=== PATIENT | female | born 1985 | race Caucasian/White ===

== ENCOUNTER 2018-06-06 08:45 | Day surgery (SDC) | payer SELFPAY ==
[2018-06-03 13:11] VITALS: BMI 24.7
[2018-06-06 09:05] LABS: #Basophils 0.1 thou/uL (0.0-0.2); #Eosinphils 0.1 thou/uL (0.0-0.7); #Lymphocytes 2.5 thou/uL (1.20-3.40); #Monocytes 0.4 thou/uL (0.11-0.59); #Neutrophils 4.7 thou/uL (1.40-6.50); %Basophils 1.3 % (0.0-1.0); %Eosinophils 1.6 % (0.0-10.0); %Lymphocytes 31.7 % (21.0-51.0); %Neutrophils 60.4 % (42.0-75.0); Hemoglobin 12.2 g/dL (12.0-16.0); Mean Corpuscular HGB CONC 33.7 g/dL (32.0-36.0); Mean Corpuscular Hemoglobin 31.6 pg (27.0-31.0); Mean Corpuscular Volume 93.8 fL (78.0-98.0); Mean Platelet Volume 6.6 fL (7.4-10.4); Platelet Count 329 thou/uL (130-400); RBC Distribution Width 11.5 % (11.5-14.5); Red Blood Cell (RBC) Count 3.87 mill/uL (4.20-5.40); White Blood Cell (WBC) Count 7.8 thou/uL (4.8-10.8)
[2018-06-06 09:12] LABS: INR-International Normal Ratio 0.9; PTT 29.7 SEC (22.9-36.1); Prothrombin Time 12.6 SEC (12.0-14.7)
--- NOTE | 2018-06-06 16:03 | CT ---
CT GUIDED RANDOM RENAL BIOPSY: 06/06/2018 HISTORY: A 33-year-old female with stage I chronic kidney disease. TECHNIQUE: Signed informed consent obtained. Patient placed prone on CT table. The skin overlying the right fl ank was prepared and draped in the usual sterile fashion. A 25 gauge needle was used to apply buffer ed Lidocaine superficially and deeply, under step CT guidance. A 17 gauge introducer needle was adva nced incrementally under step CT guidance, in tandem with the 25 gauge needle. The tip of the introd ucer needle was embedded in the posterior lateral cortex of the lower pole of the right kidney. The stylet was removed from the introducer needle. A 18 gauge, 10 cm biopsy needle was advanced through the introducer needle, in a coaxial fashion. The biopsy gun was fired, obtaining a 2.3 cm long tissu e sample, which was placed on a slide and given to Dr. Goodwin of pathology, for adequacy evaluation. An adequate number of glomeruli were visualized on preliminary light microscopy. The introducer ne edle was removed. Post biopsy scan was performed supine, through the entire abdomen and pelvis. The patient tolerated the procedure well. No complications. The patient was then scanned 2.5 hours late r, after which she was discharge home with no incident. FINDINGS: Initial prone images with grid markers over the skin of the bilateral flanks. Subsequent images demo nstrate introducer needle distal tip embedded in the right renal lower pole parenchyma, at the [employer] olateral cortex. Post biopsy scan demonstrates the expected, small hematoma abutting the right renal lower pole outer lateral surface. A 2.5 hour delayed scan demonstrates that this small hematoma has become smaller. There is no free fluid in the pelvic cavity. Incidentally, there is a benign left adrenal nodule with low attenuation. IMPRESSION: Technically successful 18 gauge core random biopsy of right renal lower pole x1. POS: [facility]
== END 2018-06-06 14:45 | disposition home or self-care (01) ==
LOC: CT 08:45
PROVIDERS: ATTEND Internal Medicine Nephrology
PROC: 0TB03ZX Excision of Right Kidney, Percutaneous Approach, Diagnostic (ICD-10-PCS; principal; 2018-06-06)
DX: N02.9 Recurrent and persistent hematuria with unspecified morphologic changes (principal); N18.1 Chronic kidney disease, stage 1; D63.1 Anemia in chronic kidney disease; G89.4 Chronic pain syndrome; Z79.899 Other long term (current) drug therapy
CPT/HCPCS: 50200; 77012; 84702; 85025; 85610; 85730; 88305; 88313; 88329; 88346; 88348; 88350